=== PATIENT | male | born 1940 | race Caucasian/White ===

== ENCOUNTER 2016-12-20 17:11 | Emergency (ER) | payer MEDICARE, BC ==
[2016-12-20] MEDS ORDERED: Sodium Chloride 0.9% 1,000 ML IV SCH (18:30)
[2016-12-20 19:39] VITALS: BP 108/55
--- NOTE | 2016-12-20 19:49 | EDM.PDOC ---
ED HISTORY OF PRESENT ILLNESS - General Chief Complaint: Respiratory Problem Stated Complaint: SOB LEGS HAVE FLUID HEAVY Time Seen by Provider: 12/20/16 18:09 Source: Reports: Patient History Limitations: Reports: No limitations - History of Present Illness INITIAL COMMENTS - FREE TEXT/NARRATIVE: History of present illness: [76-year-old male is presenting with a cough and shortness of breath for the last 3 days. He just got back from [place] and drove. Does have a history of pulmonary emboli x2. He is on warfarin. His latest INR was therapeutic. He's had no hemoptysis. He's had no fever or chest pain. When he is resting he is not short of breath his chest with any exertion or activity he becomes short of breath. But this is without chest pain. he has an appointment with Dr. Goins on Saturday] Review of systems: As per history of present illness and below otherwise all systems reviewed and negative. Past medical history: As per history of present illness and as reviewed below otherwise noncontributory. Surgical history: As per history of present illness and as reviewed below otherwise noncontributory. Social history: No reported history of drug or alcohol abuse. Family history: As per history of present illness and as reviewed below otherwise noncontributory. Physical exam: HEENT: Atraumatic, normocephalic, pupils reactive, negative for conjunctival pallor or scleral icterus, mucous membranes moist, throat clear, neck supple, nontender, trachea midline. Lungs: Clear to auscultation, breath sounds equal bilaterally, chest nontender. Heart: S1S2, regular, negative for clicks, rubs, or JVD. Abdomen: Soft, nondistended, nontender. Negative for masses or hepatosplenomegaly. Negative for costovertebral tenderness. Pelvis: Stable nontender. Genitourinary: Deferred. Rectal: Deferred. Extremities: Atraumatic, negative for cords or calf pain. Neurovascular unremarkable. Neuro: Awake, alert, oriented. Motor and sensory unremarkable throughout. Exam nonfocal. Diagnostics: [EKG chest x-ray CBC complete metabolic panel d-dimer BNP troponin were all done findings of significance were a bradycardia. He tends to run about 40-45 beats per minute. EKG demonstrated no current of injury or ischemia. He is in sinus rhythm. I note that he is on atenolol mg per day.] Therapeutics: [] Impression: [Cough and shortness of breath Bradycardia] Plan: [I'm recommending that he take one half of his atenolol per day and followup with Dr. Goins on Saturday as planned Definitive disposition and diagnosis as appropriate pending reevaluation and review of above. - Related Data Allergies/ADRs: Allergies Allergy/AdvReac Type Severity Reaction Status Date / Time oxycodone AdvReac Delusions Verified 05/18/16 12:02 Home Meds: Home Meds Allopurinol [Zyloprim] 300 mg PO DAILY 07/13/13 [History] Aspirin 325 mg PO DAILY 07/13/13 [History] Atenolol [Tenormin] 100 mg PO DAILY 07/13/13 [History] Furosemide [Lasix] 20 mg PO DAILY 07/13/13 [History] Hydrochlorothiazide 50 mg PO DAILY 07/13/13 [History] Lisinopril [Prinivil] 20 mg PO DAILY 07/13/13 [History] Warfarin [Coumadin] 5 mg PO DAILY #60 tab 07/16/13 [Rx] Acetaminophen [Tylenol] 650 mg PO Q12HR PRN 05/16/16 [History] Carbidopa/Levodopa [Sinemet 25-100 mg Tablet] 1 each PO QID 05/16/16 [History] Omeprazole Magnesium [Prilosec Otc] 40 mg PO ACBREAKFAST 05/16/16 [History] Gabapentin [Gabapentin] 1 tab PO DAILY 12/20/16 [History] carBAMazepine [Carbamazepine] 1 tab PO DAILY 12/20/16 [History] Past Medical History HEENT History: Reports: Hard of hearing, Impaired vision Other HEENT History: wears glasses, bilat hearing aides Cardiovascular History: Reports: Blood clots/VTE/DVT, Hypertension Respiratory History: Reports: Sleep apnea Gastrointestinal History: Reports: GERD Musculoskeletal History: Reports: Gout Neurological History: Reports: Parkinson's, Other (see below) Other Neuro History: trigeminal neralgia Endocrine/Metabolic History: Reports: Obesity/BMI 30+ Oncologic (Cancer) History: Reports: Basal cell carcinoma Dermatologic History: Reports: Other (see below) Other Dermatologic History: "sun spots" - Infectious Disease History Infectious Disease History: Reports: Chicken pox, Mumps, Shingles - Past Surgical History GI Surgical History: Reports: Appendectomy, Bariatric procedure, Colonoscopy, EGD, Other (see below) Other GI Surgeries/Procedures: lap band Musculoskeletal Surgical History: Reports: Other (see below) Other Musculoskeletal Surgeries/Procedures:: left rotator cuff repair Oncologic Surgical History: Reports: Lumpectomy Dermatological Surgical History: Reports: Skin biopsy Social & Family History - Family History Family Medical History: Noncontributory - Tobacco Use Smoking Status *Q: Never Smoker Second Hand Smoke Exposure: Yes - Caffeine Use Caffeine Use: Reports: Coffee - Alcohol Use Days Per Week of Alcohol Use: 7 Number of Drinks Per Day: 1 Total Drinks Per Week: 7 Date of Last Drink: 12/19/16 Time of Last Drink: 22:00 - Recreational Drug Use Recreational Drug Use: No ED ROS GENERAL - Review of Systems Review Of Systems: ROS reveals no pertinent complaints other than HPI. ED EXAM, GENERAL - Physical Exam Exam: See Below Course - Vital Signs Last Recorded V/S: Last Vital Signs Temp 37.5 C 12/20/16 17:55 Pulse 45 L 12/20/16 19:34 Resp 21 H 12/20/16 19:34 BP 108/55 L 12/20/16 19:34 Pulse Ox 100 12/20/16 19:34 - Orders/Labs/Meds Orders: Active Orders 24 hr Category Date Time Status EKG Documentation Completion [RC] ASDIRECTED Care 12/20/16 18:17 Active Chest 1V Frontal [CR] Stat Exams 12/20/16 18:17 Taken Sodium Chloride 0.9% [Normal Saline] 1,000 ml Med 12/20/16 18:30 Active IV ASDIRECTED EKG 12 Lead [EK] Stat Ther 12/20/16 18:17 Ordered Medication Orders Sodium Chloride (Normal Saline) 1,000 mls @ 250 mls/hr IV ASDIRECTED WAYNE Labs: Laboratory Tests 12/20/16 12/20/16 12/20/16 Range/Units 18:17 18:17 18:17 WBC 9.5 (4.5-11.0) K/uL RBC 4.35 (4.30-5.90) M/uL Hgb 14.0 (12.0-15.0) g/dL Hct 40.8 (40.0-54.0) % MCV 94 (80-98) fL MCH 32 H (27-31) pg MCHC 34 (32-36) % Plt Count 240 (150-400) K/uL Neut % (Auto) 67 H (36-66) % Lymph % (Auto) 18 L (24-44) % [place] % (Auto) 11 H (2-6) % Eos % (Auto) 4 (2-4) % Baso % (Auto) 0 (0-1) % PT 22.6 H (9.5-12.0) sec INR 2.08 H (0.80-1.20) D-Dimer, Quantitative (0.0-400.0) ng/mL Sodium 146 (140-148) mmol/L Potassium 3.8 (3.6-5.2) mmol/L Chloride 107 (100-108) mmol/L Carbon Dioxide 29 (21-32) mmol/L Anion Gap 10.1 (5.0-14.0) mmol/L BUN 30 H D (7-18) mg/dL Creatinine 1.3 (0.8-1.3) mg/dL Est Cr Clr Drug Dosing 43.62 mL/min Estimated GFR (MDRD) 54 L (>60) Glucose 94 (74-106) mg/dL Lactic Acid (0.4-2.0) mmol/L Calcium 9.5 (8.5-10.1) mg/dL Total Bilirubin 0.5 (0.2-1.0) mg/dL AST 13 L (15-37) U/L ALT 11 L (12-78) U/L Alkaline Phosphatase 80 (46-116) U/L Troponin I (0.000-0.056) ng/mL C-Reactive Protein (0.0-0.3) mg/dL Otv-Q-Mkholgotcrb Pept 160 (5-450) pg/mL Total Protein 7.3 (6.4-8.2) g/dL Albumin 3.5 (3.4-5.0) g/dL Globulin 3.8 H (2.3-3.5) g/dL Albumin/Globulin Ratio 0.9 L (1.2-2.2) Urine Color Urine Appearance Urine pH (4.5-8.0) Ur Specific [place] (1.008-1.030) Urine Protein (NEGATIVE) mg/dL Urine Glucose (UA) (NEGATIVE) mg/dL Urine Ketones (NEGATIVE) mg/dL Urine Occult Blood (NEGATIVE) Urine Nitrite (NEGAITVE) Urine Bilirubin (NEGATIVE) Urine Urobilinogen (NORMAL) mg/dL Ur Leukocyte Esterase (NEGATIVE) Urine RBC (0-5) Urine WBC (0-5) Ur Epithelial Cells Amorphous Sediment Urine Bacteria Urine Mucus 12/20/16 12/20/16 12/20/16 Range/Units 18:17 18:17 18:17 WBC (4.5-11.0) K/uL RBC (4.30-5.90) M/uL Hgb (12.0-15.0) g/dL Hct (40.0-54.0) % MCV (80-98) fL MCH (27-31) pg MCHC (32-36) % Plt Count (150-400) K/uL Neut % (Auto) (36-66) % Lymph % (Auto) (24-44) % [place] % (Auto) (2-6) % Eos % (Auto) (2-4) % Baso % (Auto) (0-1) % PT (9.5-12.0) sec INR (0.80-1.20) D-Dimer, Quantitative < 100 (0.0-400.0) ng/mL Sodium (140-148) mmol/L Potassium (3.6-5.2) mmol/L Chloride (100-108) mmol/L Carbon Dioxide (21-32) mmol/L Anion Gap (5.0-14.0) mmol/L BUN (7-18) mg/dL Creatinine (0.8-1.3) mg/dL Est Cr Clr Drug Dosing mL/min Estimated GFR (MDRD) (>60) Glucose (74-106) mg/dL Lactic Acid 1.6 (0.4-2.0) mmol/L Calcium (8.5-10.1) mg/dL Total Bilirubin (0.2-1.0) mg/dL AST (15-37) U/L ALT (12-78) U/L Alkaline Phosphatase (46-116) U/L Troponin I < 0.017 (0.000-0.056) ng/mL C-Reactive Protein 2.04 H (0.0-0.3) mg/dL Pcl-[id number]-Feugenybvtp Pept (5-450) pg/mL Total Protein (6.4-8.2) g/dL Albumin (3.4-5.0) g/dL Globulin (2.3-3.5) g/dL Albumin/Globulin Ratio (1.2-2.2) Urine Color Urine Appearance Urine pH (4.5-8.0) Ur Specific [place] (1.008-1.030) Urine Protein (NEGATIVE) mg/dL Urine Glucose (UA) (NEGATIVE) mg/dL Urine Ketones (NEGATIVE) mg/dL Urine Occult Blood (NEGATIVE) Urine Nitrite (NEGAITVE) Urine Bilirubin (NEGATIVE) Urine Urobilinogen (NORMAL) mg/dL Ur Leukocyte Esterase (NEGATIVE) Urine RBC (0-5) Urine WBC (0-5) Ur Epithelial Cells Amorphous Sediment Urine Bacteria Urine Mucus 12/20/16 Range/Units 19:03 WBC (4.5-11.0) K/uL RBC (4.30-5.90) M/uL Hgb (12.0-15.0) g/dL Hct (40.0-54.0) % MCV (80-98) fL MCH (27-31) pg MCHC (32-36) % Plt Count (150-400) K/uL Neut % (Auto) (36-66) % Lymph % (Auto) (24-44) % [place] % (Auto) (2-6) % Eos % (Auto) (2-4) % Baso % (Auto) (0-1) % PT (9.5-12.0) sec INR (0.80-1.20) D-Dimer, Quantitative (0.0-400.0) ng/mL Sodium (140-148) mmol/L Potassium (3.6-5.2) mmol/L Chloride (100-108) mmol/L Carbon Dioxide (21-32) mmol/L Anion Gap (5.0-14.0) mmol/L BUN (7-18) mg/dL Creatinine (0.8-1.3) mg/dL Est Cr Clr Drug Dosing mL/min Estimated GFR (MDRD) (>60) Glucose (74-106) mg/dL Lactic Acid (0.4-2.0) mmol/L Calcium (8.5-10.1) mg/dL Total Bilirubin (0.2-1.0) mg/dL AST (15-37) U/L ALT (12-78) U/L Alkaline Phosphatase (46-116) U/L Troponin I (0.000-0.056) ng/mL C-Reactive Protein (0.0-0.3) mg/dL Rno-H-Gfwnrcjthdn Pept (5-450) pg/mL Total Protein (6.4-8.2) g/dL Albumin (3.4-5.0) g/dL Globulin (2.3-3.5) g/dL Albumin/Globulin Ratio (1.2-2.2) Urine Color Yellow Urine Appearance Clear Urine pH 5.0 (4.5-8.0) Ur Specific [place] 1.020 (1.008-1.030) Urine Protein Negative (NEGATIVE) mg/dL Urine Glucose (UA) Normal (NEGATIVE) mg/dL Urine Ketones Negative (NEGATIVE) mg/dL Urine Occult Blood Negative (NEGATIVE) Urine Nitrite Negative (NEGAITVE) Urine Bilirubin Negative (NEGATIVE) Urine Urobilinogen Normal (NORMAL) mg/dL Ur Leukocyte Esterase Negative (NEGATIVE) Urine RBC Not seen (0-5) Urine WBC 0-5 (0-5) Ur Epithelial Cells Not seen Amorphous Sediment Rare Urine Bacteria Not seen Urine Mucus Not seen Meds: Medications Generic Name Dose Route Start Last Admin Trade Name Freq PRN Reason Stop Dose Admin Sodium Chloride 1,000 mls @ 250 mls/hr 12/20/16 18:30 Normal Saline IV ASDIRECTED WAYNE Departure - Departure Time of Disposition: 19:47 Disposition: Home, Self-Care 01 Condition: good Clinical Impression: Cough, SOB (shortness of breath), Bradycardia Forms: ED Department Discharge Additional Instructions: I would recommend that you take one half of your atenolol per day rather than 1. Then followup with Dr. Goins as planned and see how your heart rate and blood pressure are doing. - My Orders Last 24 Hours: My Active Orders 12/20/16 18:17 EKG Documentation Completion [RC] ASDIRECTED Chest 1V Frontal [CR] Stat EKG 12 Lead [EK] Stat 12/20/16 18:30 Sodium Chloride 0.9% [Normal Saline] 1,000 ml IV ASDIRECTED - Assessment/Plan Last 24 Hours: My Active Orders 12/20/16 18:17 EKG Documentation Completion [RC] ASDIRECTED Chest 1V Frontal [CR] Stat EKG 12 Lead [EK] Stat 12/20/16 18:30 Sodium Chloride 0.9% [Normal Saline] 1,000 ml IV ASDIRECTED
--- NOTE | 2016-12-21 09:19 | CR ---
Chest 1V Frontal INDICATION: SOB, cough FINDINGS: Comparison 05/15/2012. Stable elevation right hemidiaphragm. Heart size within normal limits allowing for portable AP technique. Hypertrophic changes thoracic spine. Chest otherwise negative.
== END 2016-12-20 19:58 | disposition home or self-care (01) ==
LOC: JP.ED 17:11
DX: R05 Cough (principal); R06.02 Shortness of breath; R00.1 Bradycardia, unspecified; I10 Essential (primary) hypertension; K21.9 Gastro-esophageal reflux disease without esophagitis; G20 Parkinson's disease; E66.9 Obesity, unspecified; Z68.38 Body mass index [BMI] 38.0-38.9, adult; Z86.711 Personal history of pulmonary embolism; Z86.718 Personal history of other venous thrombosis and embolism; Z79.01 Long term (current) use of anticoagulants; Z79.82 Long term (current) use of aspirin; Z79.899 Other long term (current) drug therapy; Z90.49 Acquired absence of other specified parts of digestive tract; Z98.84 Bariatric surgery status; Z98.890 Other specified postprocedural states; Z88.5 Allergy status to narcotic agent
CPT/HCPCS: 36415; 71010; 71010-26; 80053; 81001; 83605; 83880; 84484; 85025; 85379; 85610; 86140; 87804; 93005; 93010; 99283; 99284-25

== ENCOUNTER 2017-02-07 08:03 | Day surgery (SDC) | payer MEDICARE, BC ==
[~2017-02-07 08:03] MED LIST: Bacitracin Oint 1 GM U/D Packet ONE; Bupivacaine 0.5%/EPINEPHrine 1:200,000 50 ML MDV ONE; Lidocaine 1% 50 ML MDV ONE
[2017-02-07] MEDS ORDERED: Dextrose 5%-Lactated Ringers 1,000 ML IV SCH (08:30)
[2017-02-07] MEDS ORDERED: Propofol 200 MG/20 ML SDV ONE (09:54)
[2017-02-07] MEDS ORDERED: fentaNYL 100 MCG/2 ML SDV ONE (09:54)
[2017-02-07] MEDS ORDERED: Midazolam 1 MG/ML 2 ML SDV ONE (09:54)
[2017-02-07 11:40] VITALS: BP 93/55
--- NOTE | 2017-02-08 13:15 | OR ---
DATE OF PROCEDURE: 02/07/2017 PREOPERATIVE DIAGNOSES: 1. Gastroesophageal reflux symptoms status post laparoscopic adjustable gastric band. 2. 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 POSTOPERATIVE DIAGNOSES: 1. Esophageal dilation above laparoscopic adjustable gastric band. 2. Erosive gastritis. 3. 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 OPERATIVE PROCEDURES: 1. Esophagogastroduodenoscopy with biopsies of antrum for CLOtest. 2. Excision of probable squamous cell carcinoma of left occipital scalp with layered closure. ANESTHESIA: Local plus IV sedation. INDICATION FOR PROCEDURE: This is a 76-year-old 7-1/2 years status post laparoscopic adjustable gastric band having progressive heartburn problems. We started him on omeprazole, on the appointment of 01/30/2017, and had all fluid removed from the band. Since that time, he has been doing much better in terms the reflux symptoms. Plan is to proceed with upper GI endoscopy with biopsies and/or dilation as indicated. Potential risks of that procedure including bleeding and perforation were discussed, and he wishes to proceed. The patient has history of some squamous cell carcinomas from his scalp area. He has somewhat thicker one here on the left occipital scalp. This will be removed today as well. Potential risks of that including bleeding, infection, and possible recurrence of the process were all reviewed, and likewise the patient wishes to proceed. DETAILS OF PROCEDURE: The patient was taken to the operating room and placed initially in left lateral decubitus position. IV sedation was administered, after which the upper GI endoscope was passed orally through the length of the esophagus and into the stomach with retroflexion view of the fundus, and thereafter through the pyloric channel into the proximal duodenum. Findings included a quite dilated esophagus. This contained a small amount of liquid . This continued down to the level of the esophagogastric junction, but most of the esophageal body and distal esophagus were quite dilated. At the EG junction; however, there was not much in the way of gross inflammation. No upward extension of the gastroesophageal junction mucosal line. The imprint of the band was slightly lower than average, but still within the appropriate level, and the scope easily passed through that area. Retroflexion revealed the imprint of the band from that vantage point without evidence of erosion. The patient had more or less a diffuse erosive gastritis with this being most prominent in the antrum. Multiple erosions were covered with fibrinous exudate, and no active bleeding was seen, and no true ulcerations per se were identified. The patient also had some ulcerative duodenitis within the duodenal bulb with similar findings, which then waned beyond the duodenal bulb. Remainder of the duodenum to the junction of the third and fourth portions was unremarkable. At this point, biopsies were obtained from the antrum and sent for CLOtest for H. pylori. Minimal bleeding from the biopsy sites was seen, and the procedure completed with removal of the gastroscope. The patient now was placed in a right lateral decubitus position, and the area over the left parietal scalp was prepped and draped. This area was anesthetized with 1% lidocaine mixed with Marcaine. An elliptical incision was made around the lesion, and the lesion removed with a small amount of normal-appearing skin around it. The lesion itself measured 1.5 cm in length and the incision length ended up being 3.0 cm. Deeper soft tissue was approximated with some 4-0 Vicryl stitch, and the skin with 5-0 Prolene stitch. Bacitracin was applied. The patient was taken to the recovery room in satisfactory condition. The patient will be following up with Tabatha Jackson on 02/15/2017. If he continues to do well with the band deflated and on the omeprazole, we will continue that as current management. Should, at some point, the symptoms of reflux become problematic again, at that point, the band should likely be removed given the degree of esophageal dilation noted. Isaac Dorsey MD /[id number]
== END 2017-02-07 12:00 | disposition home or self-care (01) ==
LOC: JP.SDS 08:03
PROVIDERS: ATTEND Surgery
DX: C44.42 Squamous cell carcinoma of skin of scalp and neck (principal); K29.00 Acute gastritis without bleeding; K29.80 Duodenitis without bleeding; L11.9 Acantholytic disorder, unspecified; G47.33 Obstructive sleep apnea (adult) (pediatric); Z98.84 Bariatric surgery status; Z88.8 Allergy status to other drugs, medicaments and biological substances
CPT/HCPCS: 11623; 12031; 43239; 87081; 88305; J2250; J2704; J3010; J7042